=== PATIENT | female | born 1965 | race Caucasian/White ===

== ENCOUNTER 2019-03-24 14:10 | Emergency (ER) | payer MEDICAID ==
[~2019-03-24] VITALS: Ht 170.2 cm; Wt 73.5 kg
--- NOTE | 2019-03-24 14:31 | NUR ---
LEOBARDO RA 840 From [facility] expressed Suicidal ideation w/plan to jump off a bridge +ETOH". ALSO STATED SHE WILL OVERDOSE ON PILLS. ADMITS TO PREVIOUS ATTEMPTS. NO OTHER COMPLAINTS AT THIS TIME. SI PRECUATIONS IN PLACE. READY FOR EVAL.
--- NOTE | 2019-03-24 14:40 | NUR ---
URINE OBTAINED AND SENT TO STAT LAB
[2019-03-24 14:48] LABS: BASOPHILS % (AUTO) 0.9 % (0.0-2.0); EOSINOPHILS % (AUTO) 0.6 % (0.0-6.0); HEMATOCRIT 37 % (33-45); HEMOGLOBIN 12.4 g/dL (11.5-14.8); LYMPHOCYTES # (AUTO) 2.2 /CMM (0.8-4.8); LYMPHOCYTES % (AUTO) 38.3 % (20.0-44.0); MEAN CORPUSCULAR HGB CONC 34 g/dl (31.0-36.0); MEAN CORPUSCULAR VOLUME 99 fL (82-100); MONOCYTES # (AUTO) 0.7 /CMM (0.1-1.30); MONOCYTES % (AUTO) 12.6 % (2.0-12.0); NEUTROPHILS # (AUTO) 2.7 /CMM (1.8-8.9); NEUTROPHILS % (AUTO) 47.6 % (43.0-81.0); PLATELET COUNT (AUTO) 201 /CMM (150-450); RED BLOOD CELL COUNT(AUTO) 3.73 MIL/uL (4.0-5.2); WHITE BLOOD COUNT (AUTO) 5.7 K/uL (4.3-11.0)
[2019-03-24 14:51] LABS: APPEARANCE,URINE Turbid (CLEAR); BILIRUBIN,URINE Negative (NEGATIVE); BLOOD, URINE Trace-lysed Ery/uL (NEGATIVE); COLOR,URINE Light yellow (YELLOW); KETONES,URINE Negative (NEGATIVE); LEUKOCYTE ESTERASE ,URINE Large (NEGATIVE); NITRITE, URINE Negative (NEGATIVE); PROTEIN,URINE Negative (NEGATIVE); UGLUCOSE Negative (NEGATIVE); UROBILINOGEN,URINE 0.2 EU/dL (0.2)
--- NOTE | 2019-03-24 14:58 | NUR ---
DR DIANE AT BEDSIDE FOR EVAL
[2019-03-24 15:04] LABS: BACTERIA,URINE Many /HPF (None Seen); SQUAMOUS EPITHELIAL CELL,UR Many /HPF (None Seen)
[2019-03-24 15:05] LABS: YEAST,URINE Few /HPF (None Seen)
[2019-03-24 15:14] LABS: ALANINE AMINOTRANSFERASE 25 U/L (12-78); ALBUMIN 3.3 g/dL (3.4-5.0); ALCOHOL, BLOOD 316 mg/dL (0-0); ALKALINE PHOSPHATASE 76 U/L (46-116); ASPARTATE AMINOTRANSFERASE 25 U/L (15-37); BILIRUBIN,DIRECT 0.1 mg/dL (0.0-0.2); BILIRUBIN,TOTAL 0.3 mg/dL (0.2-1.0); CALCIUM, SERUM 8.7 mg/dL (8.5-10.1); CARBON DIOXIDE 23 mmol/L (21-32); CHLORIDE 104 mmol/L (98-107); CREATININE 0.6 mg/dL (0.6-1.3); GLUCOSE 94 mg/dL (74-106); POTASSIUM 2.8 mmol/L (3.5-5.1); SALICYLATE 5.4 mg/dL (2.8-20.0); SODIUM SERUM 139 mmol/L (136-145); TOTAL PROTEIN, SERUM 7.4 g/dL (6.4-8.2); UREA NITROGEN, BLOOD 8 mg/dL (7-18)
[2019-03-24 15:15] LABS: ACETAMINOPHEN < 2 ug/ml (10-30)
[2019-03-24] MEDS ORDERED: POTASSIUM CHLORIDE 20 MEQ TAB.PRT.SR PO ONE ×4 (15:30→22:05)
--- NOTE | 2019-03-24 15:34 | NUR ---
YAKELIN STAHL FROM [facility] PT MIGHT HAVE A BED AT [facility] ONCE PT IS MEDICALLY CLEARED
[2019-03-24] MEDS ORDERED: POTASSIUM CL. PREMIX PERIPHER. 50 ML ONE (15:46)
[2019-03-24] MEDS ORDERED: IV NS 0.9% 1,000 ML BAG IV ONE (16:00)
[2019-03-24] MEDS: POTASSIUM CL. PREMIX PERIPHER. 50 ML IV SCH ×3 (16:00→19:00)
--- NOTE | 2019-03-24 16:14 | NUR ---
PT IS A HARD STICK. UNABLE TO INFUSE IV FLUIDS AND MEDS. AWARE
--- NOTE | 2019-03-24 16:39 | NUR ---
PT SLEEPING COMFORTABLY IN BED. NO COMPLAINTS AT THIS TIME. WILL CONT TO OBSERVE
--- NOTE | 2019-03-24 18:41 | NUR ---
SPOKE WITH JOHNNY AT [facility] FOR UPDATE. WAITING FOR EMILE TO COME DOWN BEFORE CALLING [employer] CLERK. INFORMED JOHNNY WE WILL CALL HIM BACK ONCE SHE IS EVALUATED.
--- NOTE | 2019-03-24 19:04 | NUR ---
PT ASLEEP IN BED, NO COMPLAINTS AT THIS TIME. WILL CONT TO OBSERVE
--- NOTE | 2019-03-24 21:35 | NUR ---
Patient is resting comfortably in bed with eyes closed. Easily aroused. VSS
--- NOTE | 2019-03-24 22:47 | NUR ---
FIELD ADJUSTER ART EN ROUTE
--- NOTE | 2019-03-24 22:50 | NUR ---
LAB AT BEDSIDE FOR BLOOD DRAW
[2019-03-25] MEDS ORDERED: SULFAMETH/TRIMETH 800/160 MG 1 UDTAB TABLET PO ONE
--- NOTE | 2019-03-25 00:23 | NUR ---
YUDELKA AT [facility] INFORMED ME THAT NO BEDS ARE AVAILABLE AT THIS TIME. WILL TRY AGAIN IN THE AM.
[2019-03-25] MEDS ORDERED: SULFAMETH/TRIMETH 800/160 MG 1 UDTAB TABLET ONE (00:25)
[2019-03-25 03:43] VITALS: BP 114/71
--- NOTE | 2019-03-25 04:59 | NUR ---
YUDELKA INFORMED ME THAT THEYRE TRYING TO FIND A PLACEMENT FOR THIS PT. WILL GET BACK TO ME WITH UPDATES.
--- NOTE | 2019-03-25 05:03 | NUR ---
PT ACCEPTED TO [facility]. ACCEPTING MD: DR SIMS. [phone]
--- NOTE | 2019-03-25 05:08 | NUR ---
AMBULAlejandro ETA 0630. #[id number]
--- NOTE | 2019-03-25 05:41 | NUR ---
REPORT GIVEN TO GIBRAN POP.
== END 2019-03-25 07:21 | disposition short-term general hospital (02) ==
LOC: ER 14:17
DX: R45.851 Suicidal ideations (principal); F10.129 Alcohol abuse with intoxication, unspecified; E87.6 Hypokalemia; Y90.8 Blood alcohol level of 240 mg/100 ml or more
CPT/HCPCS: 36415; 80048; 80076; 80305; 80307 ×2; 80329; 81001; 84132; 85025; 87086; 99285; G0480; J3480; J7030; 81000-TC